=== PATIENT | female | born 1945 | race Caucasian/White ===

== ENCOUNTER → 2021-10-09 | Day surgery (SDC) | payer MEDICARE, OTHER ==
[~2021-10-09] MED LIST: COMBIGAN EYE DRO5 ML EYEBOTH; FOSAMAX70 MG PO; HYDROCHLOROTHIA25 MG PO; LATANOPROST2.5 ML OP; VASOTEC20 MG PO; XARELTO15 MG PO; ZOCOR40 MG PO
== END | disposition home or self-care (01) ==
LOC: OR 08:11
DX: K57.30 Diverticulosis of large intestine without perforation or abscess without bleeding (principal); K56.699 Other intestinal obstruction unspecified as to partial versus complete obstruction; K64.1 Second degree hemorrhoids; R19.5 Other fecal abnormalities; E78.5 Hyperlipidemia, unspecified; I10 Essential (primary) hypertension; Z79.899 Other long term (current) drug therapy
CPT/HCPCS: J2704; J7030